=== PATIENT | female | born 1960 | race Caucasian/White ===

== ENCOUNTER → 2019-03-23 | Outpatient (CLI) | payer OTHER ==
[2019-03-23 12:21] LABS: HGB 14.8 gm/dL (11.4-16.0); MCH 32.6 pg (25.0-35.0); MCHC 33.7 g/dL (31.0-37.0); MCV 96.7 fL (80.0-100.0); Mean Platelet Volume 7.6; Platelet Count 361 k/uL (150-450); RBC 4.55 m/uL (3.80-5.40); RDW 12.3 % (11.5-15.5); WBC 9.4 k/uL (3.8-10.6)
[2019-03-23 12:30] LABS: ALT 34 U/L (4-34); AST 40 U/L (14-36); African American GFR (CKD) >90 (>60 ml/min/1.73 sqM); Albumin 4.7 g/dL (3.5-5.0); Alkaline Phosphatase 79 U/L (38-126); Anion Gap 13 mmol/L; Blood Urea Nitrogen 13 mg/dL (7-17); Calcium 9.9 mg/dL (8.4-10.2); Carbon Dioxide 26 mmol/L (22-30); Chloride 100 mmol/L (98-107); Cholesterol 209 mg/dL (<200); Glucose 258 mg/dL (74-99); HDL Cholesterol 73 mg/dL (40-60); LDL Cholesterol,Calculated 118 mg/dL (0-99); Non-African American GFR(CKD) >90 (>60 ml/min/1.73 sqM); Potassium 4.4 mmol/L (3.5-5.1); Sodium 139 mmol/L (137-145); Total Bilirubin 1.2 mg/dL (0.2-1.3); Total Protein 8.4 g/dL (6.3-8.2); Triglycerides 92 mg/dL (<150)
[2019-03-23 12:46] LABS: T4, Free (Free Thyroxine) 0.86 ng/dL (0.78-2.19)
[2019-03-23 22:05] LABS: Urine Creatinine 22.2 mg/dL
[2019-03-24 04:19] LABS: Hemoglobin A1C 8.8 % (4.0-6.0)
--- NOTE | 2019-03-25 10:20 | MM ---
Reason for exam: screening (asymptomatic). Last mammogram was performed 4 years and 4 months ago. History: Patient is postmenopausal. Family history of breast cancer in sister. Physical Findings: A clinical breast exam by your physician is recommended on an annual basis and results should be correlated with mammographic findings. MG Screening Mammo w CAD Bilateral CC, MLO, and XCCL view(s) were taken. Prior study comparison: November 17, 2014, bilateral MG screening mammo w CAD. August 20, 2013, bilateral MG screening mammo w CAD. There are scattered fibroglandular densities. No significant changes when compared with prior studies. ASSESSMENT: Benign, BI-RAD 2 RECOMMENDATION: Routine screening mammogram of both breasts in 1 year.
== END | disposition home or self-care (01) ==
LOC: RADMAMWWP 11:44
PROVIDERS: ATTEND Family Medicine
DX: Z12.31 Encounter for screening mammogram for malignant neoplasm of breast (principal); Z00.00 Encounter for general adult medical examination without abnormal findings; E11.65 Type 2 diabetes mellitus with hyperglycemia; E05.90 Thyrotoxicosis, unspecified without thyrotoxic crisis or storm
CPT/HCPCS: 36415; 77067; 80053; 80061; 82043; 82306; 82570; 83036; 84439; 84443; 85027

== ENCOUNTER 2019-10-19 19:35 | Emergency (ER) | payer OTHER ==
[2019-10-19 19:43] VITALS: BP 159/85; PULSE 83; RESP 16; TEMP 98.1
[2019-10-19] MEDS ORDERED: ORPHENADRINE 30 MG/ML 2 ML VIAL IM STA (20:00)
--- NOTE | 2019-10-19 20:06 | ED ---
General Adult HPI - General Chief complaint: Extremity Problem,Nontraumatic Stated complaint: R Arm Pain Time Seen by Provider: 10/19/19 19:48 Source: patient, RN notes reviewed Mode of arrival: ambulatory Limitations: no limitations - History of Present Illness Initial comments: 59-year-old female with a past medical history of NIDDM, hypertension presents to the emergency department for chief complaint of right arm pain. Patient reports for the past week she has had shooting pain coming from above the right shoulder radiating down to her right arm. States this worsens with certain movements. She states it worsens when she lays on it. she also reports that it worsens when she turns her head to the left. Patient also reports that sometimes it has pins and needle sensation. She denies any weakness in the arm. Denies any leg weakness or difficulty walking or speaking. Patient reports that when she takes a warm shower it eases the discomfort in her right arm. Patient has not yet followed up with her doctor. Patient states she did try Motrin but it did not seem to help.Patient has no other complaints at this time including shortness of breath, chest pain, abdominal pain, nausea or vomiting, headache, or visual changes. - Related Data Home Medications Medication Instructions Recorded Confirmed Ibuprofen [Motrin] 600 mg PO Q8HR PRN 07/18/13 07/18/13 Losartan [Cozaar] 25 mg PO DAILY 07/18/13 07/18/13 metFORMIN HCL [Glucophage] 500 mg PO BID 07/18/13 07/18/13 Previous Rx's Medication Instructions Recorded Amoxicillin 500 mg PO Q8H #30 capsule 07/18/13 Cyclobenzaprine [Flexeril] 10 mg PO TID #14 tab 10/19/19 Allergies Allergy/AdvReac Type Severity Reaction Status Date / Time codeine Allergy Chest Pain Verified 10/19/19 19:43 Review of Systems ROS Statement: Those systems with pertinent positive or pertinent negative responses have been documented in the HPI. ROS Other: All systems not noted in ROS Statement are negative. Past Medical History Past Medical History: Diabetes Mellitus, Hypertension History of Any Multi-Drug Resistant Organisms: None Reported Past Surgical History: Cholecystectomy, Tonsillectomy Additional Past Surgical History / Comment(s): x2 Past Psychological History: No Psychological Hx Reported Past Alcohol Use History: None Reported Past Drug Use History: None Reported General Exam Limitations: no limitations General appearance: alert, in no apparent distress Head exam: Present: atraumatic, normocephalic, normal inspection Eye exam: Present: normal appearance, PERRL, EOMI. Absent: scleral icterus, conjunctival injection, periorbital swelling ENT exam: Present: normal exam, mucous membranes moist Neck exam: Present: normal inspection. Absent: tenderness, meningismus, full ROM (full range motion to the right. Patient has limited range of motion to the left to about 45 degrees), lymphadenopathy Respiratory exam: Present: normal lung sounds bilaterally. Absent: respiratory distress, wheezes, rales, rhonchi, stridor Cardiovascular Exam: Present: regular rate, normal rhythm, normal heart sounds. Absent: systolic murmur, diastolic murmur, rubs, gallop, clicks GI/Abdominal exam: Present: soft, normal bowel sounds. Absent: distended, tenderness, guarding, rebound, rigid Extremities exam: Present: normal inspection, full ROM, normal capillary refill (capillary refill less than 2 seconds, radial pulse 2+ in the right upper extremity.), other (full range motion of the right arm however patient has increased pain when abducting the right arm above her head. Patient has strength 5 out of 5 in the right arm. Sensation is intact in the right arm. Hand Hide Stretcher strength 5 out of 5.). Absent: tenderness (no tenderness in the right arm. No erythema or swelling.) Course Vital Signs 10/19/19 19:40 Temperature 98.1 F Pulse Rate 83 Respiratory 16 Rate Blood Pressure 159/85 O2 Sat by Pulse 98 Oximetry Medical Decision Making - Medical Decision Making HPI physical exam as documented. patient symptoms are consistent with a cervical radiculopathy. Patient is a diabetic and will not be started on steroids. Patient will alternate Motrin and Tylenol as she has never been told that she cannot have Motrin. Patient will also be started on muscle relaxers. She will follow up with orthopedics as MRI will be more beneficial than x-rays. She will return here to the emergency room should she have any worsening symptoms or weakness in the right arm. Disposition Clinical Impression: Arm pain Disposition: HOME SELF-CARE Condition: Good Instructions (If sedation given, give patient instructions): Cervical Radiculopathy (ED) Additional Instructions: please alternate Motrin and Tylenol for pain up to every 3 hours. Please take muscle relaxer as directed but you cannot drive or operate machinery while taking muscle relaxer. Follow-up with orthopedics in the next 1-2 days. If you've any worsening symptoms or weakness in the right arm return to the emergency room. Prescriptions: Cyclobenzaprine [Flexeril] 10 mg PO TID #14 tab Is patient prescribed a controlled substance at d/c from ED?: No Referrals: Shorty Fraga DO [Primary Care Provider] - 1-2 days Guillermo Hinkle MD [STAFF PHYSICIAN] - 1-2 days Time of Disposition: 20:04
== END 2019-10-19 21:09 | disposition home or self-care (01) ==
LOC: EC 19:35
DX: M79.601 Pain in right arm (principal); E11.9 Type 2 diabetes mellitus without complications; I10 Essential (primary) hypertension; Z79.84 Long term (current) use of oral hypoglycemic drugs; Z79.899 Other long term (current) drug therapy; Z88.5 Allergy status to narcotic agent; Z90.49 Acquired absence of other specified parts of digestive tract
CPT/HCPCS: 96360; 99283; J2360; 96372

== ENCOUNTER → 2019-12-02 | Outpatient (CLI) | payer OTHER ==
--- NOTE | 2019-12-03 22:15 | MR ---
EXAMINATION TYPE: MR cervical spine wo con DATE OF EXAM: 12/02/2019 COMPARISON: None HISTORY: Radiculopathy, cervical region, weakness and pain in RT arm and fingers CONTRAST: Performed utilizing 0 mL intravenous Gadavist gadolinium contrast. TECHNIQUE: Multiplanar multiecho imaging on a 3.0 Florecita magnet is performed through the cervical spin e. FINDINGS: The craniovertebral junction is normal. Vertebral body alignment is straightened. There is loss of disc height C5-6. C7-T1: Broad-based disc bulge has anterior thecal sac flattening. No AP spinal canal stenosis presen t. Uncovertebral joint hypertrophy contributes to bilateral foraminal stenosis. C6-7: There is a large left paracentral disc herniation with severe anterior thecal sac compression. This has cord contact and cord deformity. This is not as well appreciated in the sagittal plane. Cord deformity appears to be present. Signal change however is not evident. Consider correlation with CT to evaluate for osseous spur. Spinal canal stenosis is present. C5-6: There is a central disc herniation with moderate anterior thecal sac compression. This appears to have cord contact. Cord deformity is not clearly identified. No AP spinal canal stenosis present. Uncovertebral joint hypertrophy is moderate right foraminal stenosis.. C4-5: There is a large left paracentral disc herniation with moderate anterior thecal sac compression . Mild cord contact and mild cord deformity may be present. AP spinal canal stenosis is present. Righ t uncovertebral joint hypertrophy has mild foraminal stenosis C3-4: No focal disc herniation or significant disc bulge is evident. Uncovertebral joint hypertrophy is mild left and moderate right foraminal stenosis C2-3: No focal disc herniation or significant disc bulge is evident. No spinal canal stenosis or víctor ral foraminal stenosis is present. IMPRESSIONS: 1. Large left paracentral disc herniations C4-5 and C6-7. Spinal canal stenosis is present. Cord defo rmity is present. 2. Central disc herniation with moderate anterior thecal sac compression with cord contact. 3. Uncovertebral joint hypertrophy contributing to some milder foraminal stenosis. Greatest level gerardo ears to be moderate foraminal narrowing at C3-4.
--- NOTE | 2019-12-04 01:40 | MR ---
EXAMINATION TYPE: MR shoulder RT wo con DATE OF EXAM: 12/02/2019 COMPARISON: None HISTORY: Arm and shoulder pain Multiplanar multiecho imaging of the right shoulder was performed without contrast. FINDINGS: There is mild shoulder joint effusion. Subscapularis tendon is intact. Biceps tendon is intact. There is fluid around the biceps tendon. The glenoid quincy appear intact. There is full-thickness defect through the supraspinatus tendon. There is no retraction. There is thi ckening of the supraspinatus tendon with fluid signal at the greater tuberosity of the humerus. There is small amount of fluid in the subcutaneous acromial bursa. I see no bony destructive process. Scap james appears intact. Humeral head is intact. IMPRESSION: Large full-thickness tear of the supraspinatus tendon. No retraction. There is thickening and increas ed signal in the supraspinatus tendon at the greater tuberosity consistent with tendinitis. Mild shou lder joint effusion.
== END | disposition home or self-care (01) ==
LOC: RADMRIMAIN 12:02
PROVIDERS: ATTEND Family Medicine
DX: M48.02 Spinal stenosis, cervical region (principal); M50.121 Cervical disc disorder at C4-C5 level with radiculopathy; M47.892 Other spondylosis, cervical region; M75.101 Unspecified rotator cuff tear or rupture of right shoulder, not specified as traumatic; M75.121 Complete rotator cuff tear or rupture of right shoulder, not specified as traumatic; M25.411 Effusion, right shoulder
CPT/HCPCS: 72141

== ENCOUNTER → 2020-01-01 | Outpatient (CLI) | payer OTHER ==
--- NOTE | 2020-01-01 17:29 | CT ---
EXAMINATION TYPE: CT CervThoracic spine wo con DATE OF EXAM: 01/01/2020 COMPARISON: MRI cervical spine 12/02/2019 HISTORY: Cervicalgia. Pain in thoracic spine. TECHNIQUE: CT imaging of the cervical and thoracic spine obtained without intravenous contrast. Coron al and sagittal reformatted images generated. Automated exposure control for dose reduction was used. FINDINGS: Cervical spine: Multilevel central disc herniation with disc osteophyte complex which indents the thecal sac at multi ple levels. This contributes to moderate compression of the thecal sac at C5-C6. Redemonstrated left subarticular disc herniation at C4-C5 with moderate left compression of the left anterior thecal sac. Redemonstrated left subarticular disc osteophyte complex at C6-C7 with severe compression of the lef t anterior thecal sac. There is spinal stenosis at C4-C5 and C6-C7, better appreciated on 12/01/2019 M RI comparison. Facet arthropathy and uncovertebral hypertrophy of the cervical spine contribute to va rying degrees of mild to moderate multilevel neural foramina narrowing bilaterally. Thoracic spine: There is moderate degenerative anterolateral marginal osteophytic spurring. Degenerative endplate porsha nges. Minimal vacuum disc phenomenon. There are a few posterior disc ostomy complexes which indent th e ventral aspect of the thecal sac. No severe canal stenosis. No acute fracture or dislocation. IMPRESSION: DEGENERATIVE CHANGES OF THE CERVICAL AND THORACIC SPINE, WITH NO ACUTE FRACTURE OR DISLOCATION.
== END | disposition home or self-care (01) ==
LOC: RADCTMAIN 09:13
PROVIDERS: ATTEND Orthopaedic Surgery
DX: M47.812 Spondylosis without myelopathy or radiculopathy, cervical region (principal); M47.814 Spondylosis without myelopathy or radiculopathy, thoracic region; Z88.5 Allergy status to narcotic agent
CPT/HCPCS: 72125; 72128

== ENCOUNTER 2021-06-11 23:12 | Emergency (ER) | payer OTHER ==
[2021-06-11 23:30] VITALS: BP 151/73; PULSE 88; RESP 22; TEMP 98.9
== END 2021-06-12 00:11 | disposition left against medical advice (07) ==
LOC: EC 23:12
DX: Z53.21 Procedure and treatment not carried out due to patient leaving prior to being seen by health care provider (principal)
CPT/HCPCS: 87635

== ENCOUNTER 2021-10-13 11:44 | Emergency (ER) | payer OTHER ==
[2021-10-13 12:08] VITALS: BP 155/72; PULSE 78; RESP 18; TEMP 98.6
--- NOTE | 2021-10-13 13:34 | ED ---
General Adult HPI - General Chief complaint: Recheck/Abnormal Lab/Rx Stated complaint: wants Covid test Time Seen by Provider: 10/13/21 13:18 Source: patient Mode of arrival: ambulatory Limitations: no limitations - History of Present Illness Initial comments: 7-year-old female past history of diabetes and hypertension presents to the emergency department requesting Covid testing. States that she has been hanging out with her friend whose grandson tested positive for Covid. She denies having any symptoms. No chest pain, shortness of breath, nausea, vomiting, diarrhea or fevers. She is vaccinated. No other alleviating, precipitating or modifying factors - Related Data Home Medications Medication Instructions Recorded Confirmed Ibuprofen [Motrin] 600 mg PO Q8HR PRN 07/18/13 07/18/13 Losartan [Cozaar] 25 mg PO DAILY 07/18/13 07/18/13 metFORMIN HCL [Glucophage] 500 mg PO BID 07/18/13 07/18/13 Previous Rx's Medication Instructions Recorded Amoxicillin 500 mg PO Q8H #30 capsule 07/18/13 Cyclobenzaprine [Flexeril] 10 mg PO TID #14 tab 10/19/19 Allergies Allergy/AdvReac Type Severity Reaction Status Date / Time codeine Allergy Chest Pain Verified 10/13/21 12:08 Review of Systems ROS Statement: Those systems with pertinent positive or pertinent negative responses have been documented in the HPI. ROS Other: All systems not noted in ROS Statement are negative. Past Medical History Past Medical History: Diabetes Mellitus, Hypertension History of Any Multi-Drug Resistant Organisms: None Reported Past Surgical History: Cholecystectomy, Tonsillectomy Additional Past Surgical History / Comment(s): x2 Past Psychological History: No Psychological Hx Reported Smoking Status: Former smoker Past Alcohol Use History: None Reported Past Drug Use History: None Reported General Exam Limitations: no limitations General appearance: alert, in no apparent distress Head exam: Present: atraumatic, normocephalic, normal inspection Eye exam: Present: normal appearance, PERRL, EOMI. Absent: scleral icterus, conjunctival injection, periorbital swelling ENT exam: Present: normal exam, mucous membranes moist Neck exam: Present: normal inspection. Absent: tenderness, meningismus, lymphadenopathy Respiratory exam: Present: normal lung sounds bilaterally. Absent: respiratory distress, wheezes, rales, rhonchi, stridor Cardiovascular Exam: Present: regular rate, normal rhythm, normal heart sounds. Absent: systolic murmur, diastolic murmur, rubs, gallop, clicks GI/Abdominal exam: Present: soft, normal bowel sounds. Absent: distended, tenderness, guarding, rebound, rigid Extremities exam: Present: normal inspection, full ROM, normal capillary refill. Absent: tenderness, pedal edema, joint swelling, calf tenderness Back exam: Present: normal inspection Neurological exam: Present: alert, oriented X3, CN II-XII intact Psychiatric exam: Present: normal affect, normal mood Skin exam: Present: warm, dry, intact, normal color. Absent: rash Course Vital Signs 10/13/21 12:04 Temperature 98.6 F Pulse Rate 78 Respiratory 18 Rate Blood Pressure 155/72 O2 Sat by Pulse 98 Oximetry Medical Decision Making - Medical Decision Making Upon arrival patient is placed into [facility] room. Covid is negative. Patient will be discharged home and needs to retest if she begins developing symptoms - Lab Data Lab Results 10/13/21 Range/Units 12:08 Coronavirus (PCR) Not Detected (Not Detectd) Disposition Clinical Impression: Exposure to COVID-19 virus Disposition: HOME SELF-CARE Condition: Stable Instructions (If sedation given, give patient instructions): Normal Exam (ED) Additional Instructions: You must be retested if you develop symptoms. Is patient prescribed a controlled substance at d/c from ED?: No Referrals: Shorty Fraga DO [Primary Care Provider] - 1-2 days Time of Disposition: 13:34
== END 2021-10-13 14:04 | disposition home or self-care (01) ==
LOC: EC 11:44
DX: Z11.52 Encounter for screening for COVID-19 (principal); E11.9 Type 2 diabetes mellitus without complications; I10 Essential (primary) hypertension; Z87.891 Personal history of nicotine dependence; Z88.5 Allergy status to narcotic agent; Z20.822 Contact with and (suspected) exposure to COVID-19; Z79.899 Other long term (current) drug therapy
CPT/HCPCS: 87635; 99283

== ENCOUNTER 2022-01-13 13:59 | Emergency (ER) | payer OTHER ==
--- NOTE | 2022-01-13 15:08 | ED ---
General Adult HPI - General Chief complaint: Extremity Problem,Nontraumatic Stated complaint: left leg pain Time Seen by Provider: 01/13/22 14:55 Source: patient, RN notes reviewed Mode of arrival: ambulatory Limitations: no limitations - History of Present Illness Initial comments: Patient is a pleasant 61 -year-old female presenting to the emergency Department with left leg discomfort. Onset of symptoms was a few days ago. Discomfort is mostly posterior and around the left knee. No rash. No fever. No back pain. No sacral pain. No gluteal pain. Patient did have a fall however that was around 6 weeks ago. Patient does have chronic left knee arthritis and does wear a brace. No weakness. No chest pain or dyspnea. - Related Data Home Medications Medication Instructions Recorded Confirmed Ibuprofen [Motrin] 600 mg PO Q8HR PRN 07/18/13 07/18/13 Losartan [Cozaar] 25 mg PO DAILY 07/18/13 07/18/13 metFORMIN HCL [Glucophage] 500 mg PO BID 07/18/13 07/18/13 Previous Rx's Medication Instructions Recorded Amoxicillin 500 mg PO Q8H #30 capsule 07/18/13 Cyclobenzaprine [Flexeril] 10 mg PO TID #14 tab 10/19/19 Allergies Allergy/AdvReac Type Severity Reaction Status Date / Time codeine Allergy Chest Pain Verified 01/13/22 14:19 Review of Systems ROS Statement: Those systems with pertinent positive or pertinent negative responses have been documented in the HPI. ROS Other: All systems not noted in ROS Statement are negative. Constitutional: Denies: fever Eyes: Denies: eye pain ENT: Denies: ear pain Respiratory: Denies: cough, dyspnea Cardiovascular: Denies: chest pain Endocrine: Denies: fatigue Gastrointestinal: Denies: abdominal pain Genitourinary: Denies: dysuria Musculoskeletal: Reports: as per HPI. Denies: back pain Skin: Denies: rash Neurological: Denies: weakness Past Medical History Past Medical History: Diabetes Mellitus, Hypertension History of Any Multi-Drug Resistant Organisms: None Reported Past Surgical History: Cholecystectomy, Tonsillectomy Additional Past Surgical History / Comment(s): x2 Past Psychological History: No Psychological Hx Reported Smoking Status: Former smoker Past Alcohol Use History: None Reported Past Drug Use History: None Reported General Exam Limitations: no limitations General appearance: alert, in no apparent distress Head exam: Present: normocephalic Eye exam: Present: normal appearance Neck exam: Present: normal inspection Respiratory exam: Present: normal lung sounds bilaterally Cardiovascular Exam: Present: regular rate, normal rhythm Expanded Peripheral pulses: 2+: Posterior Tibialis (L), Dorsalis Pedis (L) GI/Abdominal exam: Present: soft. Absent: tenderness Extremities exam: Present: normal inspection, calf tenderness (Mild left-sided). Absent: pedal edema Neurological exam: Present: alert. Absent: motor sensory deficit Psychiatric exam: Present: normal affect, normal mood Skin exam: Present: normal color Course Vital Signs 01/13/22 01/13/22 14:17 15:26 Temperature 98.1 F Pulse Rate 87 84 Respiratory 20 16 Rate Blood Pressure 160/77 O2 Sat by Pulse 98 Oximetry Medical Decision Making - Medical Decision Making Patient reevaluated and updated. X-ray was offered but refused. - Radiology Data Radiology results: report reviewed (Ultrasound negative for DVT) Disposition Clinical Impression: Leg strain Disposition: HOME SELF-CARE Condition: Stable Instructions (If sedation given, give patient instructions): Knee Pain (ED) Additional Instructions: Please do follow-up through primary care physician as well as orthopedics in the next couple days for recheck. Return for increased pain, swelling, color change, chest pain or difficulty breathing, worsening symptoms or other concerns. Is patient prescribed a controlled substance at d/c from ED?: No Referrals: Shorty Fraga DO [Primary Care Provider] - 1-2 days Park Talbert DO [Doctor of Osteopathic Medicine] - 1-2 days Time of Disposition: 16:38
[2022-01-13 15:28] VITALS: RESP 16
--- NOTE | 2022-01-13 15:50 | US ---
EXAMINATION TYPE: US venous doppler duplex LE LT DATE OF EXAM: 01/13/2022 3:04 PM COMPARISON: NONE CLINICAL HISTORY: pain. Left leg swelling. No redness. Not on blood thinners. No hx blood clot. SIDE PERFORMED: Left TECHNIQUE: The lower extremity deep venous system is examined utilizing real time linear array sonog gallo with graded compression, doppler sonography and color-flow sonography. VESSELS IMAGED: Common Femoral Vein Deep Femoral Vein Greater Saphenous Vein * Femoral Vein Popliteal Vein Small Saphenous Vein * Proximal Calf Veins (* superficial vessels) Left Leg: Negative for DVT IMPRESSION: No evidence of deep vein thrombosis in the left leg.
[2022-01-13] MEDS ORDERED: traMADol 50 MG STARTER PACK 3 TAB BTL PO STA (16:37)
[2022-01-13 16:53] VITALS: BP 145/68; PULSE 83; TEMP 98.3
== END 2022-01-13 16:55 | disposition home or self-care (01) ==
LOC: EC 13:59
DX: S86.812A Strain of other muscle(s) and tendon(s) at lower leg level, left leg, initial encounter (principal); E11.9 Type 2 diabetes mellitus without complications; I10 Essential (primary) hypertension; Z87.891 Personal history of nicotine dependence; Z79.811 Long term (current) use of aromatase inhibitors; Z79.84 Long term (current) use of oral hypoglycemic drugs; Z79.899 Other long term (current) drug therapy; Z88.5 Allergy status to narcotic agent; W18.30XA Fall on same level, unspecified, initial encounter
CPT/HCPCS: 99283

== ENCOUNTER → 2024-10-02 | Outpatient (CLI) | payer OTHER ==
[2024-10-02 15:07] LABS: Bilirubin,Urine Negative (Negative); Blood,Urine Negative (Negative); Color,Urine Yellow (Yellow); Ketones,Urine Negative (Negative); Nitrite,Urine Negative (Negative); PH, Urine 7.0; Specific Gravity,Urine 1.005 (1.001-1.030); Urobilinogen,Urine 0.2 E.U./DL
[2024-10-02 15:10] LABS: HCT 38.4 % (37.2-46.3); HGB 12.2 g/dL (12.0-15.0); MCH 31.6 pg (27.0-32.0); MCHC 31.8 g/dL (32.0-37.0); MCV 99.5 FL (80.0-97.0); NRBC Per 100 WBC 0 X 10*3/uL (0.00-0.01); Platelet Count 306 X 10*3/uL (140-440); RBC 3.86 X 10*6/uL (4.10-5.20); RDW 13.0 % (11.5-14.5); WBC 7.69 X 10*3/uL (4.50-10.00)
[2024-10-02 15:13] LABS: Bacteria,Urine None Seen (None Seen)
[2024-10-02 15:46] LABS: Cholesterol 129.00 mg/dL (0.00-200.00); HDL Cholesterol 65.10 mg/dL (40.00-60.00); LDL Cholesterol,Calculated 53.0 mg/dL (0.0-131.0); T4, Free (Free Thyroxine) 1.50 ng/dL (0.80-1.80); Triglycerides 54.50 mg/dL (0.00-149.00); VLDL Calculation 10.90 mg/dL (5.00-40.00)
[2024-10-02 15:58] LABS: ALT 13 U/L (8-44); AST 22 U/L (13-35); Albumin 4.3 g/dL (3.8-4.9); Albumin/Globulin Ratio 1.65 Ratio (1.60-3.17); Alkaline Phosphatase 78 U/L (41-126); Anion Gap 14.60 mmol/L (4.00-12.00); BUN/Creat Ratio 13.14 Ratio (12.00-20.00); Blood Urea Nitrogen 9.2 mg/dL (9.0-27.0); Calcium 9.4 mg/dL (8.7-10.3); Carbon Dioxide 21.4 mmol/L (21.6-31.8); Chloride 105 mmol/L (96-109); Globulin 2.6 g/dL (1.6-3.3); Glucose 161 mg/dL (70-110); Potassium 4.9 mmol/L (3.5-5.5); Sodium 141 mmol/L (135-145); Total Protein 6.9 g/dL (6.2-8.2)
== END | disposition home or self-care (01) ==
LOC: LABWHC1 10:24
PROVIDERS: ATTEND Family Medicine
DX: Z00.00 Encounter for general adult medical examination without abnormal findings (principal); E03.9 Hypothyroidism, unspecified; E11.65 Type 2 diabetes mellitus with hyperglycemia
CPT/HCPCS: 36415; 80053; 80061; 81001; 82043; 82306; 82570; 83036; 84439; 84443; 85027